=== PATIENT | female | born 1940 | race Caucasian/White ===

== ENCOUNTER 2017-01-19 10:14 | Outpatient (CLI) | payer MEDICARE, OTHER | END 2017-01-19 10:15 | disposition home or self-care (01) | LOC: LAB.N 10:14 | PROVIDERS: ATTEND Internal Medicine Hematology & Oncology | DX: C50.912 Malignant neoplasm of unspecified site of left female breast (principal); M81.0 Age-related osteoporosis without current pathological fracture | CPT/HCPCS: 36415; 86300 ==

== ENCOUNTER 2018-02-14 09:32 | Outpatient (CLI) | payer MEDICARE, OTHER | END 2018-02-14 09:33 | disposition home or self-care (01) | LOC: LAB 09:32 | PROVIDERS: ATTEND Internal Medicine Hematology & Oncology | DX: C50.912 Malignant neoplasm of unspecified site of left female breast (principal); Z08 Encounter for follow-up examination after completed treatment for malignant neoplasm | CPT/HCPCS: 36415; 82378; 86300 ==

== ENCOUNTER 2018-06-17 09:18 | Outpatient (CLI) | payer MEDICARE, OTHER ==
[2018-06-17 12:30] LABS: BASOPHILS % (AUTO) 0.5 %; EOSINOPHILS # (AUTO) 0.1 10^3/uL (0.0-0.7); EOSINOPHILS % (AUTO) 1.3 %; HGB - HEMOGLOBIN 12.2 g/dL (12.0-16.0); LYMPHOCYTES # (AUTO) 2.1 10^3/uL (1.5-3.5); LYMPHOCYTES % (AUTO) 42.1 %; MEAN CORPUSCULAR HEMOGLOBIN 33.4 pg (27.0-31.0); MEAN CORPUSCULAR HGB CONC 34.7 g/dL (32.0-36.0); MEAN CORPUSCULAR VOLUME 96.4 fL (81.0-99.0); MEAN PLATELET VOLUME 8.1 fL (7.9-10.8); MONOCYTES # (AUTO) 0.4 10^3/uL (0.0-1.0); MONOCYTES % (AUTO) 8.6 %; NEUTROPHILS # (AUTO) 2.3 10^3/uL (1.5-6.6); NEUTROPHILS % (AUTO) 47.5 %; PLT - PLATELET COUNT 237 10^3/uL (130-450); RED BLOOD COUNT 3.64 10^6/uL (4.20-5.40); RED CELL DISTRIBUTION WIDTH 13.4 % (12.0-15.0); WHITE BLOOD COUNT 4.9 x10^3/uL (4.8-10.8)
[2018-06-17 12:53] LABS: ALBUMIN 4.1 g/dL (3.2-5.5); ALBUMIN/GLOBULIN RATIO 1.4 (1.0-2.2); ALKALINE PHOSPHATASE 44 IU/L (42-121); ALT ALANINE AMINOTRANSFERASE 11 IU/L (10-60); AST ASPARTATE AMINOTRANSFERASE 20 IU/L (10-42); BILIRUBIN,TOTAL 0.9 mg/dL (0.2-1.0); BUN - BLOOD UREA NITROGEN 14 mg/dL (6-20); CALCIUM 9.4 mg/dL (8.5-10.3); CARBON DIOXIDE - CO2 29 mmol/L (21-32); CHLORIDE 102 mmol/L (101-111); CHOL/HDL RATIO 3.6 (<4.4); CHOLESTEROL 173 mg/dL; CREATININE 0.8 mg/dL (0.4-1.0); DIGOXIN 0.7 ng/mL; GFR - MDRD 69 (>89); GLUCOSE 89 mg/dL (70-100); HDL CHOLESTEROL 48 mg/dL; LDL CHOLESTEROL,CALCULATED 108 mg/dL; LDL/HDL RATIO 2.3 (<4.4); SODIUM 139 mmol/L (135-145); VLDL CHOLESTEROL 17 mg/dL
== END 2018-06-17 09:19 | disposition home or self-care (01) ==
LOC: LAB.N 09:18
PROVIDERS: ATTEND Internal Medicine
DX: I48.1 Persistent atrial fibrillation (principal); G47.30 Sleep apnea, unspecified; E78.00 Pure hypercholesterolemia, unspecified
CPT/HCPCS: 36415; 80053; 80061; 80162; 83721; 85025

== ENCOUNTER 2018-07-03 13:05 | Outpatient (CLI) | payer MEDICARE, OTHER | END 2018-07-03 13:06 | disposition home or self-care (01) | LOC: SC 13:05 | PROVIDERS: ATTEND Nurse Practitioner Family | DX: G47.33 Obstructive sleep apnea (adult) (pediatric) (principal) | CPT/HCPCS: 99214; G0463; 99212 ==

== ENCOUNTER 2021-06-14 13:08 | Emergency (ER) | payer MEDICARE, OTHER ==
[2021-06-14 13:18] VITALS: BP 105/69
--- NOTE | 2021-06-14 13:33 | ED Physician Documentation ---
PD HPI LOWER EXT INJURY - Stated complaint Stated Complaint: LEFT SIDE TOE INJURY - Chief complaint Chief Complaint: Ext Problem - History obtained from History obtained from: Patient - History of Present Illness PD HPI LOW EXT INJURY LOCATION: Left, Toe (4th) Type of injury: Blunt / blow (stubbed toe on furniture today.) Where injury occurred: Home Timing - onset: How many hours ago (1.5) Timing - duration: Hours (1.5) Timing - details: Abrupt onset Pain level max: 8 Pain level now: 5 Improved by: Rest Worsened by: Moving, Palpating Associated symptoms: Swelling. No: Weakness, Numbness, Tingling Recently seen: Not recently seen Review of Systems Constitutional: denies: Fever, Chills GI: denies: Vomiting, Diarrhea Skin: denies: Rash Musculoskeletal: denies: Neck pain, Back pain Neurologic: denies: Headache PD PAST MEDICAL HISTORY - Allergies Allergies/Adverse Reactions: Allergies Allergy/AdvReac Type Severity Reaction Status Date / Time No Known Drug Allergies Allergy Verified 06/14/21 13:18 PD ED PE NORMAL - Vitals Vital signs reviewed: Yes - General General: Alert and oriented X 3, No acute distress - Derm Derm: Warm and dry - Extremities Extremities: Other (Tender to palpation with mild swelling over left fourth toe. Neurovascular intact. No gross deformity.) - Neuro Neuro: Alert and oriented X 3 Results - Vitals Vitals: Vital Signs - 24 hr 06/14/21 13:12 Temperature 36.5 C Heart Rate 72 Respiratory 16 Rate Blood Pressure 105/69 O2 Saturation 97 Oxygen O2 Source Room air - Rads (name of study) Left toe x-ray Radiology: Final report received, EMP read contemporaneously, See rad report (Fracture of the proximal phalanx of the left fourth toe) PD MEDICAL DECISION MAKING - ED course Complexity details: reviewed results, re-evaluated patient, considered differential, d/w patient ED course: 81-year-old female with a left fourth toe fracture. Mayur tape applied. Placed in a postoperative shoe. Declines pain medication here or for home. Patient counseled regarding signs and symptoms for which I believe and urgent re- evaluation would be necessary. Patient with good understanding of and agreement to plan and is comfortable going home at this time This document was made in part using voice recognition software. While efforts are made to proofread this document, sound alike and grammatical errors may occur. Departure - Departure Disposition: 01 Home, Self Care Clinical Impression: Toe fracture, left Qualifiers: Encounter type: initial encounter Toe: unspecified toe Fracture type: closed Fracture alignment: nondisplaced Qualified Code(s): S92.912A - Unspecified fracture of left toe(s), initial encounter for closed fracture Condition: Good Instructions: ED Fx Toe Closed Follow-Up: Ramos Bello MD [Primary Care Provider] - Within 1 week Comments: Follow up with your doctor in 1 week for further care. Return if you worsen. You do have a fracture of your fourth toe. This will heal on it's own. Discharge Date/Time: 06/14/21 14:45
--- NOTE | 2021-06-14 13:56 | XRAY Report ---
PROCEDURE: Toe(s) LT INDICATIONS: 4th toe vs bedside table TECHNIQUE: 3 views of the fourth toe(s) acquired. COMPARISON: None. FINDINGS: BONES: Mildly displaced, oblique fracture of the fourth proximal phalanx which does not appear to ext end to the articular surface. The remaining visualized osseous structures are maintained. SOFT TISSUES: Edema about the fracture site. IMPRESSION: 1.Mildly displaced, oblique fracture of the fourth proximal phalanx. Reviewed by: Geoff Valdes MD on 06/14/2021 1:55 PM PDT Approved by: Geoff Valdes MD on 06/14/2021 1:55 PM PDT Station ID: [id number]
== END 2021-06-14 14:45 | disposition home or self-care (01) ==
LOC: ED 13:08
DX: S92.512A Displaced fracture of proximal phalanx of left lesser toe(s), initial encounter for closed fracture (principal); W22.8XXA Striking against or struck by other objects, initial encounter
CPT/HCPCS: 73660; 99283

== ENCOUNTER 2022-01-06 13:03 | Outpatient (CLI) | payer MEDICARE, OTHER | END 2022-01-06 13:04 | disposition critical access hospital (66) | LOC: EMS 13:03 | DX: R42 Dizziness and giddiness (principal); I95.9 Hypotension, unspecified | CPT/HCPCS: A0425; A0427 ==

== ENCOUNTER 2022-01-06 13:15 | Inpatient (IN) | payer MEDICARE, OTHER ==
[2022-01-06] MEDS ORDERED: SODIUM CHLORIDE 0.9% 1,000 ML IV STA ×2 (13:39→14:00)
[2022-01-06 13:49] LABS: BASOPHILS % (AUTO) 0.2 %; EOSINOPHILS % (AUTO) 0.5 %; HCT - HEMATOCRIT 35.7 % (37.0-47.0); HGB - HEMOGLOBIN 12.5 g/dL (12.0-16.0); LYMPHOCYTES # (AUTO) 2.6 10^3/uL (1.5-3.5); LYMPHOCYTES % (AUTO) 42.4 %; MEAN CORPUSCULAR HEMOGLOBIN 32.6 pg (27.0-31.0); MEAN PLATELET VOLUME 9.7 fL (7.9-10.8); MONOCYTES # (AUTO) 0.6 10^3/uL (0.0-1.0); MONOCYTES % (AUTO) 9.8 %; NEUTROPHILS # (AUTO) 2.9 10^3/uL (1.5-6.6); NEUTROPHILS % (AUTO) 47.1 %; PLT - PLATELET COUNT 224 10^3/uL (130-450); RED BLOOD COUNT 3.84 10^6/uL (4.20-5.40); WHITE BLOOD COUNT 6.2 x10^3/uL (4.8-10.8)
--- NOTE | 2022-01-06 13:56 | ED Physician Documentation ---
History of Present Illness - Stated complaint Stated Complaint: DIZZINESS - Chief complaint Chief Complaint: Neuro - History obtained from History obtained from: Patient, EMS - History of Present Illness Timing: Today Pain level max: 0 Pain level now: 0 - Additonal information Additional information: Patient is an 81-year-old female who is brought in to the emergency department for dizziness. She states that she stood up off the bed this morning and immediately felt lightheaded. Sat back down on the bed and symptoms resolved. She states that the dizziness only lasted for a few seconds. Her called 911. No chest pain. No shortness of breath. Better with sitting down, worse with standing.. Currently asymptomatic. EMS states that her blood pressure was low so they gave her IV fluids. No fevers. No chills. No abdominal pain. Review of Systems Ten Systems: 10 systems reviewed and negative Constitutional: denies: Fever, Chills Ears: denies: Ear pain Nose: denies: Rhinorrhea / runny nose, Congestion Throat: denies: Sore throat Cardiac: denies: Chest pain / pressure, Palpitations, Calf pain Respiratory: denies: Dyspnea, Cough, Wheezing GI: denies: Abdominal Pain, Nausea, Vomiting, Diarrhea Skin: denies: Rash Musculoskeletal: denies: Neck pain, Back pain Neurologic: reports: Generalized weakness. denies: Focal weakness, Numbness, Confused, Headache, Head injury, LOC PD PAST MEDICAL HISTORY - Past Medical History Past Medical History: Yes Cardiovascular: Murmur, Other Respiratory: None Neuro: None Endocrine/Autoimmune: None GI: None MANAGER POKER: None : None HEENT: Other Psych: None Musculoskeletal: None Derm: None - Past Surgical History Past Surgical History: Yes HEENT: Cataracts - Allergies Allergies/Adverse Reactions: Allergies Allergy/AdvReac Type Severity Reaction Status Date / Time No Known Drug Allergies Allergy Verified 06/14/21 13:18 - Social History Does the pt smoke?: No Smoking Status: Never smoker Does the pt drink ETOH?: Yes Does the pt have substance abuse?: No - Immunizations Immunizations are current?: Yes PD ED PE NORMAL - Vitals Vital signs reviewed: Yes - General General: Alert and oriented X 3, No acute distress - HEENT HEENT: PERRL, Moist mucous membranes - Neck Neck: Supple, no meningeal sign - Cardiac Cardiac: RRR, Strong equal pulses - Respiratory Respiratory: No respiratory distress, Clear bilaterally - Abdomen Abdomen: Soft, Non tender, Non distended - Derm Derm: Warm and dry - Extremities Extremities: No edema, No calf tenderness / cord - Neuro Neuro: Alert and oriented X 3, orthopedic shoe maker 2-12 intact, No motor deficit, No sensory deficit Eye Opening: Spontaneous Motor: Obeys Commands Verbal: Oriented GCS Score: 15 - Psych Psych: Normal mood, Normal affect Results - Vitals Vitals: Vital Signs - 24 hr 01/06/22 01/06/22 13:28 13:50 Temperature 35.9 C L Heart Rate 68 69 Respiratory 15 16 Rate Blood Pressure 92/56 L 97/67 O2 Saturation 97 Oxygen O2 Source Room air - EKG (time done) 1350 Rate: Rate (enter#) (69) Rhythm: Paced - Labs Labs: Laboratory Tests 01/06/22 01/06/22 01/06/22 13:45 13:45 13:45 WBC 6.2 RBC 3.84 L Hgb 12.5 Hct 35.7 L MCV 93.0 MCH 32.6 H MCHC 35.0 RDW 13.0 Plt Count 224 MPV 9.7 Neut # (Auto) 2.9 Lymph # (Auto) 2.6 [place] # (Auto) 0.6 Eos # (Auto) 0.0 Baso # (Auto) 0.0 Absolute Nucleated RBC 0.00 Nucleated RBC % 0.0 Sodium 123 L Potassium 3.0 L Chloride 84 L Carbon Dioxide 28 Anion Gap 11.0 BUN 24 H Creatinine 1.1 H Estimated GFR (MDRD) 47 L Glucose 129 H Calcium 9.3 Troponin I High Sens 10.5 B-Natriuretic Peptide Last Dose Date Last Dose Time Digoxin 01/06/22 01/06/22 13:45 13:45 WBC RBC Hgb Hct MCV MCH MCHC RDW Plt Count MPV Neut # (Auto) Lymph # (Auto) [place] # (Auto) Eos # (Auto) Baso # (Auto) Absolute Nucleated RBC Nucleated RBC % Sodium Potassium Chloride Carbon Dioxide Anion Gap BUN Creatinine Estimated GFR (MDRD) Glucose Calcium Troponin I High Sens B-Natriuretic Peptide 409 H Last Dose Date Not Reportable Last Dose Time Not Reportable Digoxin 0.4 PD MEDICAL DECISION MAKING - ED course Complexity details: reviewed old records, reviewed results, re-evaluated patient, considered differential, d/w patient, d/w home planning consultant salesperson ED course: Patient found to be hyponatremic, hypokalemic. Her last sodium level here was 139. She is not on any diuretics. Likely that this is related to her dehydration. We will place her on IV fluids and placed in observation for further care. Discussed the case with Dr. Pruitt, hospitalist who accepts This document was made in part using voice recognition software. While efforts are made to proofread this document, sound alike and grammatical errors may occur. Departure - Departure Disposition: ED Place in Observation Clinical Impression: Hyponatremia, Dehydration, Hypokalemia Condition: Stable Discharge Date/Time: 01/06/22 16:49
[2022-01-06 13:58] LABS: CALCIUM 9.3 mg/dL (8.5-10.3); CREATININE 1.1 mg/dL (0.4-1.0)
[2022-01-06 14:40] LABS: DIGOXIN 0.4 ng/mL
[2022-01-06] MEDS ORDERED: ACETAMINOPHEN 325 MG TABLET PO PRN (14:51)
[2022-01-06] MEDS ORDERED: SODIUM CHLORIDE FLUSH 0.9% 10 ML SYRINGE IVP PRN (14:51)
[2022-01-06] MEDS ORDERED: ONDANSETRON 4 MG/2 ML VIAL IVP PRN (14:51)
[2022-01-06] MEDS ORDERED: POTASSIUM CHLORIDE 20 MEQ TABLET PO STA (14:57)
--- NOTE | 2022-01-06 15:02 | HISTORY & PHYSICAL EXAMINATION ---
Chief Complaint - Chief Complaint Chief Complaint: dizziness History of Present Illness - Admitted From Admitted From:: medical floor - History Obtained From Records Reviewed: [facility], ER notes History obtained from: pt Exam Limitations: pt's hx of dementia - History of Present Illness HPI Comment/Other: This is a 81-yrs old female with a significant medical history of dementia and CVA with wheelchair bound, a fib who present ER complain of Dizziness. pt report when she stood up in this morning, she immediately felt lightheaded. she has to sit back down on the bed, then her symptoms was resolved. she denies fall or i njury or loss of consciousness. her dizziness has only lasted for a few seconds. She denies chest pain, fever, chill. She report this dizziness thing happened before and state " it is my problem I did not drink enough." Routine laboratory test show sodium 123, potassium 3, BUN 24, creatinine 1.1, troponin 10.5, BNP 409. In the ER, patient is afebrile, her blood pressure was 92/56. Given patient's above medical conditions, medical team was consulted for admission. Discussed the care goal with patient, patient state she hope to be DNR "let it happen as natural way." History - Past Medical History Cardiovascular: reports: Murmur, Other Respiratory: reports: None Neuro: reports: None Endocrine/Autoimmune: reports: None GI: reports: None FINANCIAL SALES ADVISOR: reports: None : reports: None HEENT: reports: Other Psych: reports: None Musculoskeletal: reports: None Derm: reports: None - Past Surgical History HEENT: reports: Cataracts - Family & Social History Family History Comment/Other: pt report her father from Dementia, unknow his age. Her mother at age 93. Social History Notes: pt report she had cigarret smoking when she was ago 13 then she quit. she did not drink alcohol or have no drug issue. Meds/Allgy - Allergies Allergies/Adverse Reactions: Allergies Allergy/AdvReac Type Severity Reaction Status Date / Time No Known Drug Allergies Allergy Verified 06/14/21 13:18 Review of Systems - Constitutional Constitutional: denies: Fever, Chills - Cardiovascular Cariovascular: reports: Lightheadedness. denies: Chest pain, Syncope - Respiratory Respiratory: denies: Cough, SOB at rest - Gastrointestinal Gastrointestinal: denies: Abdominal pain, Nausea, Vomiting - Neurological Neurological: denies: Numbness, Seizures, Incoordination, Slurred speech Exam - Vital Signs Vital Signs: Vital Signs x48h Temp Pulse Resp BP Pulse Ox 01/06/22 13:50 69 16 97/67 01/06/22 13:28 35.9 C L 68 15 92/56 L 97 - Physical Exam General Appearance: positive: No acute distress, Alert. negative: Lethargic Eyes Bilateral: positive: Normal inspection, No lid inflammation ENT: positive: ENT inspection nml. negative: Purulent nasal drainage Neck: positive: Nml inspection, Trachea midline. negative: Tracheal deviation Respiratory: positive: Chest non-tender, No respiratory distress. negative: Wheezes Cardiovascular: positive: Regular rate & rhythm, No murmur. negative: Tachycardia, Bradycardia, Systolic murmur, Diastolic murmur Peripheral Pulses: positive: 2+ Abdomen: positive: Non-tender, Nml bowel sounds, No distention. negative: Tenderness Back: positive: Nml inspection Skin: positive: Color nml, Warm, Dry Extremities: positive: Non-tender, Nml appearance Neurologic/Psychiatric: negative: Weakness, Sensory loss, Facial droop, Slurred/abnml speech Conclusion/Plan - Problem List (1) Dizziness Conclusion/Plan: Patient report she immediately felt dizziness and lightheaded when she stands up. after she was given IVF by EMS, her BP was still at 92/56 at ER. Lab test show dehydration with slightly increase creatinine to 1.1. Hyponatremia, hypokalemia. Troponin was 10.5, negative for acute TN. pt's home medication list is pending. we do not have ECHO study service now. one of different diagnosis include dehydration, orthostatic hypotension, or overdose of home BP medications. plan: IVF for dehydration. pt was already given 1 liter of IVF, we will continue IV of NS, orthostatic vital sign monitor, fall precaution for pt. Tele and vital monitor pt. (2) Dehydration Conclusion/Plan: Patient had elevated BUN and creatinine, Low blood pressure. Patient already had 1 L of normal saline in the ER, we will continue intravenous IV fluids, continue geophysical laboratory director (3) Hyponatremia Conclusion/Plan: Patient's sodium of 123, is likely hypovolemia and hyponatremia. we will have IV of NS for pt, continue lab monitor for pt (4) Hypokalemia Conclusion/Plan: pt's potassium is 3. we will replacement with potassium, continue geophysical laboratory director - Lab Results Fish Bones: 01/06/22 13:45 01/06/22 13:45 Core Measures - Anticipated LOS I expect patient to be DC'd or transferred within 96 hours.: Yes - DVT/VTE - Prophylaxis VTE/DVT Device ordered at admit?: Yes VTE/DVT Prophylaxis med ordered at admit?: Yes
[2022-01-06] MEDS: SODIUM CHLORIDE 0.9% 1,000 ML IV SCH (16:00)
[2022-01-06 16:24] LABS: B. PARAPERTUSSIS- RESP PCR PAN NOT DETECTED; B. PERTUSSIS- RESP PCR PANEL NOT DETECTED; C. PNEUMONIAE- RESP PCR PANEL NOT DETECTED; CORONAVIRUS 229E-RESP PCR NOT DETECTED; CORONAVIRUS HKU1-RESP PCR NOT DETECTED; CORONAVIRUS NL63-RESP PCR NOT DETECTED; CORONAVIRUS OC43-RESP PCR NOT DETECTED; HUMAN METAPNEUMOVIRUS NOT DETECTED; INFLUENZA A- RESP PCR PANEL NOT DETECTED; INFLUENZA B - RESP PCR PANEL NOT DETECTED; M. PNEUMONIAE- RESP PCR PANEL NOT DETECTED; PARAINFLUENZA VIRUS 1 NOT DETECTED; PARAINFLUENZA VIRUS 2 NOT DETECTED; PARAINFLUENZA VIRUS 3 NOT DETECTED; PARAINFLUENZA VIRUS 4 NOT DETECTED; RHINOVIRUS/ENTEROVIRUS NOT DETECTED; RSV- RESP PCR PANEL NOT DETECTED; SARS-CoV-2 -RESP PCR PANEL NOT DETECTED
[2022-01-06 16:35] LABS: BILIRUBIN,URINE NEGATIVE (NEGATIVE); GLUCOSE, URINE (UA) NEGATIVE (NEGATIVE); KETONES,URINE (UA) NEGATIVE (NEGATIVE); LEUKOCYTE ESTERASE, URINE TRACE (NEGATIVE); NITRITE,URINE NEGATIVE (NEGATIVE); OCCULT BLOOD,URINE NEGATIVE (NEGATIVE); PROTEIN,URINE NEGATIVE (NEGATIVE); UROBILINOGEN,URINE 0.2 (NORMAL) E.U./dL (NORMAL)
[2022-01-06 16:41] LABS: CLARITY,URINE CLEAR (CLEAR)
[2022-01-06 16:46] LABS: BACTERIA,URINE Rare /HPF (None Seen); RBC,URINE 0-5 /HPF (0-5); SQUAMOUS EPITHELIAL CELL,UR FEW Squamous (<= Few); WBC,URINE 0-3 /HPF (0-5)
[2022-01-06] MEDS: POTASSIUM CHLOR 10 MEQ/100 ML 10 MEQ/100 ML BAG IV SCH ×2 (17:38→18:52)
[2022-01-06] MEDS: SODIUM CHLORIDE FLUSH 0.9% 10 ML SYRINGE IVP SCH (17:39)
[2022-01-07] MEDS: SODIUM CHLORIDE FLUSH 0.9% 10 ML SYRINGE IVP SCH ×3 (00:07→16:26)
[2022-01-07] MEDS: SODIUM CHLORIDE 0.9% 1,000 ML IV SCH (00:09)
[2022-01-07 06:33] LABS: BASOPHILS % (AUTO) 0.3 %; EOSINOPHILS # (AUTO) 0.1 10^3/uL (0.0-0.7); EOSINOPHILS % (AUTO) 1.4 %; HCT - HEMATOCRIT 34.7 % (37.0-47.0); HGB - HEMOGLOBIN 12.1 g/dL (12.0-16.0); LYMPHOCYTES # (AUTO) 2.3 10^3/uL (1.5-3.5); LYMPHOCYTES % (AUTO) 36.2 %; MEAN CORPUSCULAR HEMOGLOBIN 31.9 pg (27.0-31.0); MEAN CORPUSCULAR HGB CONC 34.9 g/dL (32.0-36.0); MEAN CORPUSCULAR VOLUME 91.6 fL (81.0-99.0); MEAN PLATELET VOLUME 9.9 fL (7.9-10.8); MONOCYTES # (AUTO) 0.7 10^3/uL (0.0-1.0); MONOCYTES % (AUTO) 10.6 %; NEUTROPHILS # (AUTO) 3.2 10^3/uL (1.5-6.6); NEUTROPHILS % (AUTO) 51.3 %; PLT - PLATELET COUNT 220 10^3/uL (130-450); RED BLOOD COUNT 3.79 10^6/uL (4.20-5.40); RED CELL DISTRIBUTION WIDTH 12.9 % (12.0-15.0); WHITE BLOOD COUNT 6.2 x10^3/uL (4.8-10.8)
[2022-01-07 06:37] LABS: CALCIUM 8.6 mg/dL (8.5-10.3); CREATININE 0.8 mg/dL (0.4-1.0); POTASSIUM 3.3 mmol/L (3.5-5.0)
[2022-01-07] MEDS: ENOXAPARIN 40 MG/0.4 ML SYRINGE SUBQ SCH (08:09)
[2022-01-07] MEDS: POTASSIUM CHLOR 10 MEQ/100 ML 10 MEQ/100 ML BAG IV SCH ×4 (09:35→12:45)
[2022-01-07 09:37] LABS: ALBUMIN 3.7 g/dL (3.2-5.5); ALKALINE PHOSPHATASE 40 IU/L (42-121); ALT ALANINE AMINOTRANSFERASE < 10 IU/L (10-60); AST ASPARTATE AMINOTRANSFERASE 16 IU/L (10-42); BILIRUBIN,DIRECT 0.2 mg/dL (0.1-0.5); MAGNESIUM 1.9 mg/dL (1.7-2.8); TOTAL PROTEIN 6.4 g/dL (6.7-8.2)
--- NOTE | 2022-01-07 11:29 | PROVIDER PROGRESS NOTE ---
Assessment/Plan - Problem List (1) Orthostatic hypotension Assessment/Plan: Patient reported she felt dizziness and lightheaded when she stood up at home and her called EMS for this. IV fluids were given by EMS and in the ER and she still had low BP, and her blood tests show dehydration, hyponatremia, and hypokalemia. Her home meds should not be making her have low BP (she was on Dig, Eliquis, Pravastatin and Propafenone). She was brought in for Observation status and has received iv saline since admission, but she is still orthostatic and possibly symptomatic with this today Will admit her to Inpatient status. Will continue IV fluids Monitor orthostatic vital sign Follow BMP daily Continue telemetry We have no Echo service whatsoever here currently. As a Board-Certified [place] rdiologist, credentialed to do and interpret Echos, I performed a limited bedside Echo with Doppler today. The Echo showed: Normal LA and RA sizes Normal aortic root diameter with mural atherosclerosis Normal LV size and wall thickness, normal LV contractility except apical motion abnormal, consistent with a paced rhythm. LVEF 55%. RV size upper limits of normal and a pacamaker is seen in RV. Normal RV function. Valves appear structurally normal, only trace mitral regurg seen by Doppler exam of valves. A smal, loculated apical pericardial effusion is seen, not hemodynamically significant. (2) Dementia She claims that she has had a prior [place] and a prior stroke. She does not remember an ambulance being called to her house yesterday or that she was dizzy. She thinks she is in a "healthcare facility" and thinks she has been here for a long time. She was oriented to self and place, not to time and has very poor short-term and long-term memory, by my bedside evaluation. She claims she still drives. Because only poor po intake was found as a cause of the current volume depletion, there is concern that she may have Failure To Thrive. She describes that there is a caregiver name Ayesha who comes in and prepares 3 meals, does some housecleaning but does not assist with the patient's toileting or bathing or dressing. Given her diagnosis of dementia, I checked for prior head imaging and there was none at this facility and none was done at admission in the ED yesterday. We will obtain a head CT. PT evaluation was ordered. Per her RN, she is very impulsive, tries to stand up on her own and walk in the room despite her being connected to telemetry and IV tubing. She has been reminded several times to call her nurse before getting out of bed on her own We will determine what her usual oral intake is, by reaching out to the . Social work consult also ordered for this. If she has FTT, with poor oral intake, we will stop the use of her statin medic ation. Will submit a DMV form [prohibiting driving a vehicle any longer. (3) Dehydration She presented with pre-renal azotemia with BUN/creat 24/1.1, which has corrected to 17/0.8 this morning. Only poor po intake was found as a cause of the current volume depletion. There has been no fever, no diarrhea, no medications that would make her dehydrated were being used. Because of her dementia, will determine what her usual oral intake is by reaching out to the . Social work consult also ordered for this. Continue iv hydration and plan as in #1 (4) Hyponatremia Patient's sodium was 123, with hypovolemic hyponatremia. Her Na has improved to 125 then 127 this a.m. We will continue IV NS, and continue lab monitoring, to prevent too rapid of a correction (5) Hypokalemia Her Potassium was 3 and replacement was ordered. Despite this, her a.m. labs show persistent Hypokalemia. There were no diuretics on her home med list to explain this and there has been no fever, no diarrhea, to explain the low sodium and volume depletion as well. Only poor po intake was found as a cause of the current volume depletion. We will replacement with potassium Follow BMP (6) Atrial flutter From her medication list showing Digoxin, Eliquis and propafenone use, it appears she has chronic atrial fib-flutter. Her rate is controlled. We are still awaiting the med list to be reconciled to restart her meds. There was concern that she is on Eliquis, given her dementia and dizziness and therefore falls risk. This will be discussed with the family/. PT consult has also been ordered to assess her, because of fall risk. Continue with telemetry (7) Pacemaker Her telemetry shows that she has appropriate ventricular demand pacing. (8) Hx of CVA As per records and she voiced this. Will obtain a head CT today. - Current Meds Current Meds: Current Medications Generic Name Dose Route Start Last Admin Trade Name Frelakesha PRN Reason Stop Dose Admin Enoxaparin Sodium 40 mg 01/07/22 09:00 01/07/22 08:09 Enoxaparin 40 Mg/0.4 Ml Syringe SUBQ 40 mg DAILY AYANA Administration Potassium Chloride 10 meq in 100 mls @ 100 mls/hr 01/07/22 10:00 01/07/22 10:41 Potassium Chloride IV 01/07/22 13:59 100 mls/hr Q1H AYANA Administration Sodium Chloride 10 ml 01/06/22 17:00 01/07/22 08:09 Sodium Chloride Flush 0.9% 10 Ml Syringe IVP Not Given 0100,0900,1700 AYANA - Lab Result Fish Bone Diagrams: 01/07/22 06:10 01/07/22 06:10 - Additional Planning My Orders: My Active Orders 01/07/22 10:00 Potassium Chlor 10 Meq/100 ml [Potassium Chloride] 10 meq in 100 ml IV Q1H Subjective - Subjective Patient Reports: No Complaints Nursing Reports: Other (Wants to go home, thinks she has been here for "a long time".) Objective Vital Signs: Vital Signs - 24 hr 01/06/22 01/06/22 01/06/22 13:28 13:50 16:44 Temperature 35.9 C L 36.4 C L Heart Rate 68 69 Heart Rate [ 68 Apical] Heart Rate [ Brachial] Respiratory 15 16 20 Rate Blood Pressure 92/56 L 97/67 Blood Pressure 110/66 [Right Brachial artery] O2 Saturation 97 100 01/06/22 01/06/22 01/07/22 21:00 23:33 04:35 Temperature 36.3 C L 36.4 C L 36.2 C L Heart Rate Heart Rate [ Apical] Heart Rate [ 69 69 75 Brachial] Respiratory 16 18 14 Rate Blood Pressure Blood Pressure 114/57 L 112/62 126/74 [Right Brachial artery] O2 Saturation 98 99 100 01/07/22 07:50 Temperature 36.2 C L Heart Rate Heart Rate [ Apical] Heart Rate [ 69 Brachial] Respiratory 16 Rate Blood Pressure Blood Pressure 111/65 [Right Brachial artery] O2 Saturation 97 Oxygen O2 Source Room air I&O (Last 24 Hrs): Intake and Output Totals x24h 01/05/22 01/06/22 01/07/22 23:59 23:59 23:59 Intake Total 2240 2340 Balance 2240 2340 General: Alert, No acute distress, Other (Is disheveled, wearing her glasses sideways on her nose.) HEENT: Atraumatic, Mucous membr. moist/pink Neck: Supple, No JVD Neuro: Alert, Non Focal, Other (Poor short-term and long-term memory. Normal but slow speech, not garbled.) Cardiovascular: Regular rate, No murmurs Respiratory: No respiratory distress, Breath sounds nml Abdomen: Normal bowel sounds, Soft, No tenderness Extremities: No clubbing, No edema, No tenderness/swelling Skin: No rashes - Results Results: Laboratory Results WBC 6.2 x10^3/uL (4.8-10.8) 01/07/22 06:10 RBC 3.79 10^6/uL (4.20-5.40) L 01/07/22 06:10 Hgb 12.1 g/dL (12.0-16.0) 01/07/22 06:10 Hct 34.7 % (37.0-47.0) L 01/07/22 06:10 MCV 91.6 fL (81.0-99.0) 01/07/22 06:10 MCH 31.9 pg (27.0-31.0) H 01/07/22 06:10 MCHC 34.9 g/dL (32.0-36.0) 01/07/22 06:10 RDW 12.9 % (12.0-15.0) 01/07/22 06:10 Plt Count 220 10^3/uL (130-450) 01/07/22 06:10 MPV 9.9 fL (7.9-10.8) 01/07/22 06:10 Neut # (Auto) 3.2 10^3/uL (1.5-6.6) 01/07/22 06:10 Lymph # (Auto) 2.3 10^3/uL (1.5-3.5) 01/07/22 06:10 [place] # (Auto) 0.7 10^3/uL (0.0-1.0) 01/07/22 06:10 Eos # (Auto) 0.1 10^3/uL (0.0-0.7) 01/07/22 06:10 Baso # (Auto) 0.0 10^3/uL (0.0-0.1) 01/07/22 06:10 Absolute Nucleated RBC 0.00 x10^3/uL 01/07/22 06:10 Nucleated RBC % 0.0 /100WBC 01/07/22 06:10 Sodium 127 mmol/L (135-145) L 01/07/22 06:10 Potassium 3.3 mmol/L (3.5-5.0) L 01/07/22 06:10 Chloride 93 mmol/L (101-111) L 01/07/22 06:10 Carbon Dioxide 26 mmol/L (21-32) 01/07/22 06:10 Anion Gap 8.0 (6-13) 01/07/22 06:10 BUN 17 mg/dL (6-20) 01/07/22 06:10 Creatinine 0.8 mg/dL (0.4-1.0) 01/07/22 06:10 Estimated GFR (MDRD) 69 (>89) L 01/07/22 06:10 Glucose 108 mg/dL (70-100) H 01/07/22 06:10 Calcium 8.6 mg/dL (8.5-10.3) 01/07/22 06:10 Magnesium 1.9 mg/dL (1.7-2.8) 01/07/22 06:15 Total Bilirubin 1.0 mg/dL (0.2-1.0) 01/07/22 06:15 Direct Bilirubin 0.2 mg/dL (0.1-0.5) 01/07/22 06:15 AST 16 IU/L (10-42) 01/07/22 06:15 ALT < 10 IU/L (10-60) L 01/07/22 06:15 Alkaline Phosphatase 40 IU/L (42-121) L 01/07/22 06:15 Troponin I High Sens 10.5 ng/L (2.3-14.8) 01/06/22 13:45 B-Natriuretic Peptide 409 pg/mL (5-100) H 01/06/22 13:45 Total Protein 6.4 g/dL (6.7-8.2) L 01/07/22 06:15 Albumin 3.7 g/dL (3.2-5.5) 01/07/22 06:15 Globulin 2.7 g/dL (2.1-4.2) 01/07/22 06:15 Urine Color YELLOW 01/06/22 16:28 Urine Clarity CLEAR (CLEAR) 01/06/22 16:28 Urine pH 7.0 PH (5.0-7.5) 01/06/22 16:28 Ur Specific [place] 1.015 (1.002-1.030) 01/06/22 16:28 Urine Protein NEGATIVE mg/dL (NEGATIVE) 01/06/22 16:28 Urine Glucose (UA) NEGATIVE mg/dL (NEGATIVE) 01/06/22 16:28 Urine Ketones NEGATIVE mg/dL (NEGATIVE) 01/06/22 16:28 Urine Occult Blood NEGATIVE (NEGATIVE) 01/06/22 16:28 Urine Nitrite NEGATIVE (NEGATIVE) 01/06/22 16:28 Urine Bilirubin NEGATIVE (NEGATIVE) 01/06/22 16:28 Urine Urobilinogen 0.2 (NORMAL) E.U./dL (NORMAL) 01/06/22 16:28 Ur Leukocyte Esterase TRACE (NEGATIVE) H 01/06/22 16:28 Urine RBC 0-5 /HPF (0-5) 01/06/22 16:28 Urine WBC 0-3 /HPF (0-5) 01/06/22 16:28 Ur Squamous Epith Cells FEW Squamous (<= Few) 01/06/22 16:28 Urine Bacteria Rare /HPF (None Seen) 01/06/22 16:28 Ur Microscopic Review INDICATED 01/06/22 16:28 Urine Culture Comments INDICATED 01/06/22 16:28 Nasal Adenovirus (PCR) NOT DETECTED 01/06/22 15:10 Nasal B. parapertussis DNA (PCR) NOT DETECTED 01/06/22 15:10 Nasal Coronavir 229E PCR NOT DETECTED 01/06/22 15:10 Nasal Coronavir HKU1 PCR NOT DETECTED 01/06/22 15:10 Nasal Coronavir NL63 PCR NOT DETECTED 01/06/22 15:10 Nasal Coronavir OC43 PCR NOT DETECTED 01/06/22 15:10 Nasal Enterovir/Rhinovir PCR NOT DETECTED 01/06/22 15:10 Nasal Influenza B PCR NOT DETECTED 01/06/22 15:10 Nasal Influenza A PCR NOT DETECTED 01/06/22 15:10 Nasal Parainfluen 1 PCR NOT DETECTED 01/06/22 15:10 Nasal Parainfluen 2 PCR NOT DETECTED 01/06/22 15:10 Nasal Parainfluen 3 PCR NOT DETECTED 01/06/22 15:10 Nasal Parainfluen 4 PCR NOT DETECTED 01/06/22 15:10 Nasal RSV (PCR) NOT DETECTED 01/06/22 15:10 Nasal B.pertussis DNA PCR NOT DETECTED 01/06/22 15:10 Nasal C.pneumoniae (PCR) NOT DETECTED 01/06/22 15:10 [place] Human Metapneumo PCR NOT DETECTED 01/06/22 15:10 Nasal M.pneumoniae (PCR) NOT DETECTED 01/06/22 15:10 Nasal SARS-CoV-2 (PCR) NOT DETECTED 01/06/22 15:10 Last Dose Date Not Reportable 01/06/22 13:45 Last Dose Time Not Reportable 01/06/22 13:45 Digoxin 0.4 ng/mL 01/06/22 13:45
--- NOTE | 2022-01-07 14:22 | CT Report ---
PROCEDURE: CT brain without contrast INDICATIONS: Poor memory, old CVA TECHNIQUE: Noncontrast 4.5 mm thick angled axial sections acquired from the foramen magnum to the vertex. For r adiation dose reduction, the following was used: automated exposure control, adjustment of mA and/or kV according to patient size. COMPARISON: None. FINDINGS: Image quality: Excellent. CSF spaces: Basal cisterns are patent. No extra-axial fluid collections. Ventricles are normal in size and shape. Brain: No midline shift. No intracranial masses or hemorrhage. Lopez-white matter interface is norm al. Encephalomalacia and gliosis noted in the right MCA territory noted with volume loss. Skull and face: Calvarium and visualized facial bones are intact, without suspicious lesions. Bilat eral intraocular lens replacements noted. Sinuses: Visualized sinuses and mastoids are clear. IMPRESSION: 1. 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 2. No acute hemorrhage or mass effect Reviewed by: Jermain Mckay MD on 01/07/2022 1:21 PM AKDT Approved by: Jermain Mckay MD on 01/07/2022 1:21 PM AKDT Station ID: [id number]
[2022-01-07] MEDS ORDERED: LORazepam 2 MG/ML VIAL IVP PRN (16:57)
[2022-01-07] MEDS: NS W/20 MEQ KCL 1,000 ML IV SCH (19:11)
[2022-01-07] MEDS: THIAMINE INJ 500 MG in SODIUM CHLORIDE 0.9% 50 ML IV SCH (21:31)
[2022-01-08] MEDS: SODIUM CHLORIDE FLUSH 0.9% 10 ML SYRINGE IVP SCH ×3 (00:08→16:10)
[2022-01-08] MEDS: THIAMINE INJ 500 MG in SODIUM CHLORIDE 0.9% 50 ML IV SCH ×3 (06:25→21:13)
[2022-01-08] MEDS ORDERED: SODIUM CHLORIDE 0.9% 50 ML IV ONE (06:25)
[2022-01-08] MEDS ORDERED: THIAMINE 100 MG/1 ML 2 ML MDV ONE (06:25)
[2022-01-08] MEDS: NS W/20 MEQ KCL 1,000 ML IV SCH ×2 (07:21→19:14)
[2022-01-08 07:40] LABS: BASOPHILS % (AUTO) 0.6 %; EOSINOPHILS # (AUTO) 0.2 10^3/uL (0.0-0.7); EOSINOPHILS % (AUTO) 2.8 %; HCT - HEMATOCRIT 35.3 % (37.0-47.0); HGB - HEMOGLOBIN 11.9 g/dL (12.0-16.0); LYMPHOCYTES # (AUTO) 2.7 10^3/uL (1.5-3.5); LYMPHOCYTES % (AUTO) 50.2 %; MEAN CORPUSCULAR HEMOGLOBIN 32.9 pg (27.0-31.0); MEAN CORPUSCULAR HGB CONC 33.7 g/dL (32.0-36.0); MEAN CORPUSCULAR VOLUME 97.5 fL (81.0-99.0); MEAN PLATELET VOLUME 9.9 fL (7.9-10.8); MONOCYTES # (AUTO) 0.5 10^3/uL (0.0-1.0); NEUTROPHILS # (AUTO) 1.9 10^3/uL (1.5-6.6); PLT - PLATELET COUNT 219 10^3/uL (130-450); RED BLOOD COUNT 3.62 10^6/uL (4.20-5.40); RED CELL DISTRIBUTION WIDTH 13.2 % (12.0-15.0); WHITE BLOOD COUNT 5.4 x10^3/uL (4.8-10.8)
[2022-01-08 07:54] LABS: CALCIUM 8.5 mg/dL (8.5-10.3); CREATININE 0.8 mg/dL (0.4-1.0); POTASSIUM 3.7 mmol/L (3.5-5.0)
[2022-01-08] MEDS: ENOXAPARIN 40 MG/0.4 ML SYRINGE SUBQ SCH (08:36)
[2022-01-08] MEDS: ASPIRIN EC 81 MG TABLET PO SCH (08:36)
[2022-01-08] MEDS ORDERED: MULTIVITAMIN 10 ML, THIAMINE INJ 100 MG, FOLIC ACID INJ 1 MG in SODIUM CHLORIDE 0.9% 1,... IV SCH (09:00)
--- NOTE | 2022-01-08 09:01 | PHARMACY PROGRESS NOTE ---
- Best Possible Medication History Admit Date and Time: 01/07/22 1031 Processed by: Pharmacy (and nursing) Medication History completed: Yes Patient Interview: Pt unable to participate Secondary Source(s): Written medication list, Spouse/Significant other, Insurance records As the person ultimately responsible for medication therapy, providers are able to order a medication from an existing home medication list in [facility] via the "Reconcile Routine" prior to Confirmation of that medication by medical support specialist. Such practice is discouraged except when the physician, in their clinical judgment, deems that a medical need exists for a medication without regard to previous use.
--- NOTE | 2022-01-08 17:02 | PROVIDER PROGRESS NOTE ---
Assessment/Plan - Problem List (1) Orthostatic hypotension Assessment/Plan: Patient reported she felt dizziness and lightheaded when she stood up at home and her called EMS for this. IV fluids were given by EMS and in the ER and she still had low BP, and her blood tests show dehydration, hyponatremia, and hypokalemia. Her home meds should not be making her have low BP (she was on Dig, Eliquis, Pravastatin and Propafenone). She was admitted from Observation status yesterday, since she is still orthostatic. An Echo was done yesterday that showed normal chamber sizes and normal LVEF. Will continue IV fluids Monitor orthostatic vital sign Follow BMP daily Continue telemetry (2) Alcohol abuse I talked to the yesterday. Later in the day the caregiver Ayesha came in and and I asked Ayesha about the patient's alcohol intake. The says she drinks 1 glass of wine before dinner. The caregiver says she drinks up to 3 glasses of wine every night. We have started high-dose IV thiamine which may improve her poor memory. She is getting Thiamine 500 mg IV t.i.d. for 3 days then will start 100 mg po daily. She has been started on a CIWA protocol and has scored high, has needed Ativan several times. With Ativan she is less impulsive and less agitated. At yesterday's phone call with the , it was advised she not be taking in alcohol. The patient's said that she can occasionally "get goofy" and he agreed that she should not be drinking alcohol. (3) Dementia She claimed that she has had a prior [place] and a prior stroke. The told me there was a stroke when they lived in [place]. She has never had an SD. She does not remember an ambulance being called to her house or that she was dizzy at home. She could tell me yesterday she is in a "healthcare facility" then thought she was at [facility] in [place], [place]. She was oriented to self, not to time or place and has very poor short-term and long-term memory, by my bedside evaluation yesterday. She said she still drives and "tells her where to turn". At the phone call with the , he confirmed this. Given her diagnosis of dementia,and no prior head imaging done here,we obtained a head CT yesterday. It showed an old stroke and atrophy. PT evaluation was ordered and done yesterday. She was found to be very impulsive, tried to stand up on her own and walk in the room despite her being connected to telemetry and IV tubing. She was reminded several times to call her nurse before getting out of bed on her own. This improved after getting Ativan for agitation from presumed alcohol withdrawal. I submitted a DMV form prohibit ing driving a vehicle any longer, and told the this yesterday. Correcting her hyponatremia and treating her with high-dose thiamine may help her dementia somewhat (4) Dehydration She presented with pre-renal azotemia with BUN/creat 24/1.1, which has corrected to 17/0.8. Only poor po intake was found as a cause of the current volume depletion. There has been no fever, no diarrhea, no medications that would make her dehydrated were being used. Because of her dementia, I spoke to the by phone yesterday and the caregiver who visited her yesterday afternoon. The and the caregiver confirmed that the patient drinks nothing all day except for morning coffee and wine at night Continue iv hydration and plan as in #1 (5) Hyponatremia Patient's sodium was 123, with hypovolemic hyponatremia. Her Na is improving with iv fluids We will continue IV NS, and continue lab monitoring, to prevent too rapid of a correction (6) Hypokalemia Her Potassium was 3 and replacement was ordered for 2 days now. There was no N/V/D and no diuretics on her home med list to explain this low K and there has been no fever, to explain the low sodium and volume depletion as well. Only poor po intake was found as a cause of the current volume depletion. We will order replacement with potassium Follow BMP (7) Atrial flutter From her medication list showing Digoxin, Eliquis and Propafenone use, it appears she has chronic atrial fib-flutter. Her rate is controlled. We are holding the Propafenone as it is not maintaining sinus rhythm. There was concern that she is on Eliquis, given her dementia and dizziness and therefore falls risk. This will be discussed with the family/. PT consult has also been ordered to assess her fall risk. Continue with telemetry (8) Pacemaker Her telemetry shows that she has appropriate ventricular demand pacing. (9) Hx of CVA As per records and she voiced this. Will obtain a head CT today. - Current Meds Current Meds: Current Medications Generic Name Dose Route Start Last Admin Trade Name Anjel PRN Reason Stop Dose Admin Aspirin 81 mg 01/08/22 09:00 01/08/22 08:36 Aspirin Ec 81 Mg Tablet PO 81 mg DAILY AYANA Administration Enoxaparin Sodium 40 mg 01/07/22 09:00 01/08/22 08:36 Enoxaparin 40 Mg/0.4 Ml Syringe SUBQ 40 mg DAILY AYANA Administration Potassium Chloride/Sodium Chloride 1,000 mls @ 83.333 mls/hr 01/07/22 17:00 01/08/22 14:22 Normal Saline 0.9% W/20 Meq Kcl IV 83.3 mls/hr .Q12H AYANA Infusion Thiamine HCl 500 mg/ Sodium 55 mls @ 100 mls/hr 01/07/22 22:00 01/08/22 14:22 Chloride IV 01/10/22 15:00 Infused TID AYANA Infusion Lorazepam 1 mg 01/07/22 16:57 01/07/22 19:27 Lorazepam 2 Mg/Ml Vial IVP 1 mg Q30M PRN Administration CIWA >8 Protocol Sodium Chloride 10 ml 01/06/22 17:00 01/08/22 16:10 Sodium Chloride Flush 0.9% 10 Ml Syringe IVP Not Given 0100,0900,1700 AYANA - Lab Result Fish Bone Diagrams: 01/08/22 07:05 01/08/22 07:05 - Additional Planning My Orders: My Active Orders 01/07/22 16:57 CIWA - AR Score Card [RC] Q4HR LORazepam INJ [Ativan Inj (Vial)] 1 mg IVP Q30M PRN 01/07/22 17:00 Ns W/20 Meq KCl [Normal Saline 0.9% W/20 Meq KCl] 1,000 ml IV 83.333 mls/hr 01/07/22 22:00 Thiamine Inj [Vitamin B-1 Inj] 500 mg Sodium Chloride 0.9% [Normal Saline 0.9%] 50 ml IV TID 01/08/22 09:00 Aspirin EC [Ecotrin] 81 mg PO DAILY Subjective - Subjective Patient Reports: Feeling Better, Resting Comfortably Nursing Reports: Other (She has scored 7 on CIWA, got iv Ativan, is awake but not fidgety like yesterday) Objective Vital Signs: Vital Signs - 24 hr 01/07/22 01/08/22 01/08/22 21:15 00:16 05:00 Temperature 36.2 C L 36.2 C L 36.3 C L Heart Rate [ 73 70 68 Brachial] Respiratory 17 16 16 Rate Blood Pressure 96/45 L 130/80 120/71 [Right Brachial artery] O2 Saturation 99 98 97 01/08/22 01/08/22 01/08/22 07:24 11:35 15:47 Temperature 36.2 C L 36.1 C L 36.2 C L Heart Rate [ 70 83 85 Brachial] Respiratory 16 17 17 Rate Blood Pressure 109/66 97/52 L 96/54 L [Right Brachial artery] O2 Saturation 98 97 99 Oxygen O2 Source Room air I&O (Last 24 Hrs): Intake and Output Totals x24h 01/06/22 01/07/22 01/08/22 23:59 23:59 23:59 Intake Total 2240 3499.444 2378.925 Balance 2240 3499.444 2378.925 General: Alert HEENT: Mucous membr. moist/pink Neck: Supple Neuro: Alert, Non Focal (No tremor, less impulsivity today) Cardiovascular: No murmurs Respiratory: No respiratory distress, Breath sounds nml Abdomen: Soft Extremities: No edema Skin: No rashes - Results Results: Laboratory Results WBC 5.4 x10^3/uL (4.8-10.8) 01/08/22 07:05 RBC 3.62 10^6/uL (4.20-5.40) L 01/08/22 07:05 Hgb 11.9 g/dL (12.0-16.0) L 01/08/22 07:05 Hct 35.3 % (37.0-47.0) L 01/08/22 07:05 MCV 97.5 fL (81.0-99.0) 01/08/22 07:05 MCH 32.9 pg (27.0-31.0) H 01/08/22 07:05 MCHC 33.7 g/dL (32.0-36.0) 01/08/22 07:05 RDW 13.2 % (12.0-15.0) 01/08/22 07:05 Plt Count 219 10^3/uL (130-450) 01/08/22 07:05 MPV 9.9 fL (7.9-10.8) 01/08/22 07:05 Neut # (Auto) 1.9 10^3/uL (1.5-6.6) 01/08/22 07:05 Lymph # (Auto) 2.7 10^3/uL (1.5-3.5) 01/08/22 07:05 [place] # (Auto) 0.5 10^3/uL (0.0-1.0) 01/08/22 07:05 Eos # (Auto) 0.2 10^3/uL (0.0-0.7) 01/08/22 07:05 Baso # (Auto) 0.0 10^3/uL (0.0-0.1) 01/08/22 07:05 Absolute Nucleated RBC 0.00 x10^3/uL 01/08/22 07:05 Nucleated RBC % 0.0 /100WBC 01/08/22 07:05 Sodium 133 mmol/L (135-145) L 01/08/22 07:05 Potassium 3.7 mmol/L (3.5-5.0) 01/08/22 07:05 Chloride 101 mmol/L (101-111) 01/08/22 07:05 Carbon Dioxide 25 mmol/L (21-32) 01/08/22 07:05 Anion Gap 7.0 (6-13) 01/08/22 07:05 BUN 14 mg/dL (6-20) 01/08/22 07:05 Creatinine 0.8 mg/dL (0.4-1.0) 01/08/22 07:05 Estimated GFR (MDRD) 69 (>89) L 01/08/22 07:05 Glucose 96 mg/dL (70-100) 01/08/22 07:05 Calcium 8.5 mg/dL (8.5-10.3) 01/08/22 07:05 Magnesium 2.0 mg/dL (1.7-2.8) 01/08/22 07:05 Total Bilirubin 1.0 mg/dL (0.2-1.0) 01/07/22 06:15 Direct Bilirubin 0.2 mg/dL (0.1-0.5) 01/07/22 06:15 AST 16 IU/L (10-42) 01/07/22 06:15 ALT < 10 IU/L (10-60) L 01/07/22 06:15 Alkaline Phosphatase 40 IU/L (42-121) L 01/07/22 06:15 Troponin I High Sens 10.5 ng/L (2.3-14.8) 01/06/22 13:45 B-Natriuretic Peptide 409 pg/mL (5-100) H 01/06/22 13:45 Total Protein 6.4 g/dL (6.7-8.2) L 01/07/22 06:15 Albumin 3.7 g/dL (3.2-5.5) 01/07/22 06:15 Globulin 2.7 g/dL (2.1-4.2) 01/07/22 06:15 Urine Color YELLOW 01/06/22 16:28 Urine Clarity CLEAR (CLEAR) 01/06/22 16:28 Urine pH 7.0 PH (5.0-7.5) 01/06/22 16:28 Ur Specific [place] 1.015 (1.002-1.030) 01/06/22 16:28 Urine Protein NEGATIVE mg/dL (NEGATIVE) 01/06/22 16:28 Urine Glucose (UA) NEGATIVE mg/dL (NEGATIVE) 01/06/22 16:28 Urine Ketones NEGATIVE mg/dL (NEGATIVE) 01/06/22 16:28 Urine Occult Blood NEGATIVE (NEGATIVE) 01/06/22 16:28 Urine Nitrite NEGATIVE (NEGATIVE) 01/06/22 16:28 Urine Bilirubin NEGATIVE (NEGATIVE) 01/06/22 16:28 Urine Urobilinogen 0.2 (NORMAL) E.U./dL (NORMAL) 01/06/22 16:28 Ur Leukocyte Esterase TRACE (NEGATIVE) H 01/06/22 16:28 Urine RBC 0-5 /HPF (0-5) 01/06/22 16:28 Urine WBC 0-3 /HPF (0-5) 01/06/22 16:28 Ur Squamous Epith Cells FEW Squamous (<= Few) 01/06/22 16:28 Urine Bacteria Rare /HPF (None Seen) 01/06/22 16:28 Ur Microscopic Review INDICATED 01/06/22 16:28 Urine Culture Comments INDICATED 01/06/22 16:28 Nasal Adenovirus (PCR) NOT DETECTED 01/06/22 15:10 Nasal B. parapertussis DNA (PCR) NOT DETECTED 01/06/22 15:10 Nasal Coronavir 229E PCR NOT DETECTED 01/06/22 15:10 Nasal Coronavir HKU1 PCR NOT DETECTED 01/06/22 15:10 Nasal Coronavir NL63 PCR NOT DETECTED 01/06/22 15:10 Nasal Coronavir OC43 PCR NOT DETECTED 01/06/22 15:10 Nasal Enterovir/Rhinovir PCR NOT DETECTED 01/06/22 15:10 Nasal Influenza B PCR NOT DETECTED 01/06/22 15:10 Nasal Influenza A PCR NOT DETECTED 01/06/22 15:10 Nasal Parainfluen 1 PCR NOT DETECTED 01/06/22 15:10 Nasal Parainfluen 2 PCR NOT DETECTED 01/06/22 15:10 Nasal Parainfluen 3 PCR NOT DETECTED 01/06/22 15:10 Nasal Parainfluen 4 PCR NOT DETECTED 01/06/22 15:10 Nasal RSV (PCR) NOT DETECTED 01/06/22 15:10 Nasal B.pertussis DNA PCR NOT DETECTED 01/06/22 15:10 Nasal C.pneumoniae (PCR) NOT DETECTED 01/06/22 15:10 Micah Human Metapneumo PCR NOT DETECTED 01/06/22 15:10 Nasal M.pneumoniae (PCR) NOT DETECTED 01/06/22 15:10 Nasal SARS-CoV-2 (PCR) NOT DETECTED 01/06/22 15:10 Last Dose Date Not Reportable 01/06/22 13:45 Last Dose Time Not Reportable 01/06/22 13:45 Digoxin 0.4 ng/mL 01/06/22 13:45
[2022-01-09] MEDS: THIAMINE INJ 500 MG in SODIUM CHLORIDE 0.9% 50 ML IV SCH ×3 (05:09→21:07)
[2022-01-09 05:20] LABS: BASOPHILS % (AUTO) 0.5 %; EOSINOPHILS # (AUTO) 0.1 10^3/uL (0.0-0.7); EOSINOPHILS % (AUTO) 2.1 %; HCT - HEMATOCRIT 34.5 % (37.0-47.0); HGB - HEMOGLOBIN 11.6 g/dL (12.0-16.0); LYMPHOCYTES # (AUTO) 3.6 10^3/uL (1.5-3.5); MEAN CORPUSCULAR HEMOGLOBIN 32.6 pg (27.0-31.0); MEAN CORPUSCULAR HGB CONC 33.6 g/dL (32.0-36.0); MEAN CORPUSCULAR VOLUME 96.9 fL (81.0-99.0); MEAN PLATELET VOLUME 9.7 fL (7.9-10.8); MONOCYTES # (AUTO) 0.5 10^3/uL (0.0-1.0); MONOCYTES % (AUTO) 7.7 %; NEUTROPHILS # (AUTO) 2.3 10^3/uL (1.5-6.6); NEUTROPHILS % (AUTO) 35.5 %; PLT - PLATELET COUNT 220 10^3/uL (130-450); RED BLOOD COUNT 3.56 10^6/uL (4.20-5.40); RED CELL DISTRIBUTION WIDTH 13.4 % (12.0-15.0); WHITE BLOOD COUNT 6.6 x10^3/uL (4.8-10.8)
[2022-01-09] MEDS: SODIUM CHLORIDE FLUSH 0.9% 10 ML SYRINGE IVP SCH ×4 (05:21→23:31)
[2022-01-09 05:32] LABS: CALCIUM 8.2 mg/dL (8.5-10.3); CREATININE 0.8 mg/dL (0.4-1.0)
[2022-01-09] MEDS: NS W/20 MEQ KCL 1,000 ML IV SCH (08:04)
[2022-01-09] MEDS: ASPIRIN EC 81 MG TABLET PO SCH (08:20)
[2022-01-09] MEDS: ENOXAPARIN 40 MG/0.4 ML SYRINGE SUBQ SCH (08:20)
--- NOTE | 2022-01-09 09:00 | PROVIDER PROGRESS NOTE ---
Assessment/Plan - Problem List (1) Atrial flutter with rapid ventricular response Assessment/Plan: She has a Hx of Afib-flutter, per her . She was in aflutter with 4:1 block and a controlled HR at admission. She is now going into non-sustained episodes of Aflutter with 2:1 block, at ventricular rates of 150. Her Dig level was 0.4. Will resume the daily Digoxin dose, for maintaining a controlled heart rate. We are holding the Propafenone as it is not maintaining sinus rhythm. She was on Eliquis at home. There was concern that, given her dementia and orthostasis and therefore falls risk, that Eliquis should not be continued. PT consult has been ordered to assess her falls risk. PT saw her once on 01/07/22, and stated she is a "moderate falls risk". Thus, she has been on 1 aspirin daily for stroke prophylaxis while here. Will continue aspirin, and have PCP consider resuming Eliquis after DCh, if deemed low risk. Continue with telemetry. (2) Alcohol abuse I got Hx from the by phone and the caregiver Ayesha came in and provided history. The says she drinks 1 glass of wine before dinner. The caregiver says she drinks up to 3 glasses of wine every night. We have started high-dose IV thiamine. She is getting Thiamine 500 mg IV t.i.d. for 3 days (finishes on 01/10/22) then will start 100 mg po daily. This may somewhat improve her poor memory. She has been started on a CIWA protocol and has needed Ativan several times. With Ativan she is less impulsive and less agitated. During the phone call with the , it was advised she not be taking in alcohol. The patient's said that she can occasionally "get goofy" and he agreed that she should not be drinking alcohol. Anticipate discharge to home tomorrow, after the iv Thaimine treatment doses are completed at 1600, if no SNF is advised by PT today. (3) Dementia She did not know her medical history and was only oriented to self, not place or time, at admission. She had very poor short-term and long-term memory, by my bedside evaluation. She did not remember an ambulance being called to her house or that she was dizzy at home. She called her at least 4 times on the first day, to pick her up and said she was in "[place] at the [facility]", "at [facility]", and another time at their former house. She told me she still drives and is passenger and "tells her where to turn". At the phone call with the , he confirmed this. Given her diagnosis of dementia, and no prior head imaging done here, we obtained a head CT. It showed an old stroke and atrophy. PT evaluation was ordered and done. She was found to be very impulsive, was getting OOB on her own and trying to walk in the room despite her being connected to telemetry and IV tubing. She was reminded several times to call her nurse before getting out of bed on her own. PT stated she is a "moderate falls risk". Then the history of her alcohol intake was learned and she was started on a CIWA protocol, but no scheduled Librium to prevent over-sedation. Her impulsiveness and agitation improved after getting Ativan prn. I submitted a DMV form prohibiting driving a vehicle any longer, and told the this. Correcting her hyponatremia and treating her with high-dose thiamine may help her dementia somewhat as well. (4) Hx of CVA We obtained a head CT that confirmed an old stroke causing encephalomalacia and no acute findings. (5) Pacemaker Her telemetry shows that she has appropriate ventricular demand pacing (back-up pacing). (6) Orthostatic hypotension Resolved after 3 days of iv fluids She was admitted with orthostasis. No infection was found. The only cause was poor oral hydration throughout the day (confirmed by the caregiver and by the ). A bedside Echo was done that showed normal chamber sizes and normal LVEF. Will stop IV fluids today, and assess if she can maintain hydration orally. Anticipate discharge tomorrow Continue to monitor orthostatic vital sign Follow BMP daily Continue telemetry (7) Dehydration Resolved. She presented with pre-renal azotemia with BUN/creat 24/1.1, which has corrected to 17/0.8. Only poor po intake was found as a cause of the current volume depletion. There has been no fever, no diarrhea, no medications that would make her dehydrated were being used. I spoke to the by phone and the caregiver at bedside. They both confirmed that the patient drinks practically nothing all day except for morning coffee and wine at night. and caregiver were instructed that she needs more hydration while awake. (8) Hyponatremia Resolved. Patient's sodium was 123, with hypovolemic hyponatremia. Her Na improved with iv saline We will stop IV NS today. Following BMP (9) Hypokalemia Resolved. Her Potassium was 3 and replacement was ordered for 2 days now. There was no N/V/D and no diuretics on her home med list to explain this low K and there has been no fever, to explain the low sodium and volume depletion as well. Only poor po intake was found as a cause of the current volume depletion. We will order replacement with potassium Following BMP - Current Meds Current Meds: Current Medications Generic Name Dose Route Start Last Admin Trade Name Freq PRN Reason Stop Dose Admin Aspirin 81 mg 01/08/22 09:00 01/09/22 08:20 Aspirin Ec 81 Mg Tablet PO 81 mg DAILY AYANA Administration Enoxaparin Sodium 40 mg 01/07/22 09:00 01/09/22 08:20 Enoxaparin 40 Mg/0.4 Ml Syringe SUBQ 40 mg DAILY AYANA Administration Potassium Chloride/Sodium Chloride 1,000 mls @ 83.333 mls/hr 01/07/22 17:00 01/09/22 08:04 Normal Saline 0.9% W/20 Meq Kcl IV 83.3 mls/hr .Q12H AYANA Administration Thiamine HCl 500 mg/ Sodium 55 mls @ 100 mls/hr 01/07/22 22:00 01/09/22 06:09 Chloride IV 01/10/22 15:00 Infused TID AYANA Infusion Lorazepam 1 mg 01/07/22 16:57 01/07/22 19:27 Lorazepam 2 Mg/Ml Vial IVP 1 mg Q30M PRN Administration CIWA >8 Protocol Sodium Chloride 10 ml 01/06/22 17:00 01/09/22 08:20 Sodium Chloride Flush 0.9% 10 Ml Syringe IVP 10 ml 0100,0900,1700 AYANA Administration - Lab Result Fish Bone Diagrams: 01/09/22 04:59 01/09/22 04:59 - Additional Planning My Orders: My Active Orders 01/08/22 09:00 Aspirin EC [Ecotrin] 81 mg PO DAILY 01/09/22 09:00 Ascorbic Acid [Vitamin C] 1 tab PO DAILY Calcium Carbonate [Calcium] 1 tab PO DAILY Digoxin [Lanoxin] 0.125 mg PO DAILY Magnesium Oxide [Magnesium] 400 mg PO DAILY Multivit/Folic Acid/Vit K1 [Women's 50 Plus Advanced Mv Tb] 1 tab PO DAILY [place]-3S/Dha/Epa/Fish Oil [Fish Oil 1,200 mg Softgel] 1 cap PO DAILY Tocopheryl [Vitamin E] 1 cap PO DAILY 01/09/22 21:00 Pravastatin [Pravachol] 10 mg PO QPM Subjective - Subjective Patient Reports: Resting Comfortably, No Complaints Nursing Reports: Other (No agitation or impulsivity, follows and remembers directions.) Objective Vital Signs: Vital Signs - 24 hr 01/08/22 01/08/22 01/08/22 11:35 15:47 20:48 Temperature 36.1 C L 36.2 C L 36.1 C L Heart Rate [ 83 85 80 Brachial] Respiratory 17 17 16 Rate Blood Pressure 120/53 L [Left Brachial artery] Blood Pressure 97/52 L 96/54 L [Right Brachial artery] O2 Saturation 97 99 98 01/08/22 01/09/22 01/09/22 23:34 05:11 07:53 Temperature 36.2 C L 36.5 C 36.3 C L Heart Rate [ 77 78 73 Brachial] Respiratory 16 14 16 Rate Blood Pressure [Left Brachial artery] Blood Pressure 98/61 94/61 110/59 L [Right Brachial artery] O2 Saturation 98 98 97 Oxygen O2 Source Room air I&O (Last 24 Hrs): Intake and Output Totals x24h 01/07/22 01/08/22 01/09/22 23:59 23:59 23:59 Intake Total 3499.444 3389.318 1055 Balance 3499.444 3389.318 1055 General: Alert, No acute distress HEENT: Atraumatic, EOMI Neck: Supple Neuro: Alert, Non Focal, Other (poor memory) Cardiovascular: No murmurs, Other (Irreg irreg) Respiratory: No respiratory distress, Breath sounds nml Abdomen: Normal bowel sounds, Soft Extremities: No clubbing, No edema, No tenderness/swelling Skin: No rashes - Results Results: Laboratory Results WBC 6.6 x10^3/uL (4.8-10.8) 01/09/22 04:59 RBC 3.56 10^6/uL (4.20-5.40) L 01/09/22 04:59 Hgb 11.6 g/dL (12.0-16.0) L 01/09/22 04:59 Hct 34.5 % (37.0-47.0) L 01/09/22 04:59 MCV 96.9 fL (81.0-99.0) 01/09/22 04:59 MCH 32.6 pg (27.0-31.0) H 01/09/22 04:59 MCHC 33.6 g/dL (32.0-36.0) 01/09/22 04:59 RDW 13.4 % (12.0-15.0) 01/09/22 04:59 Plt Count 220 10^3/uL (130-450) 01/09/22 04:59 MPV 9.7 fL (7.9-10.8) 01/09/22 04:59 Neut # (Auto) 2.3 10^3/uL (1.5-6.6) 01/09/22 04:59 Lymph # (Auto) 3.6 10^3/uL (1.5-3.5) H 01/09/22 04:59 [place] # (Auto) 0.5 10^3/uL (0.0-1.0) 01/09/22 04:59 Eos # (Auto) 0.1 10^3/uL (0.0-0.7) 01/09/22 04:59 Baso # (Auto) 0.0 10^3/uL (0.0-0.1) 01/09/22 04:59 Absolute Nucleated RBC 0.00 x10^3/uL 01/09/22 04:59 Nucleated RBC % 0.0 /100WBC 01/09/22 04:59 Sodium 135 mmol/L (135-145) 01/09/22 04:59 Potassium 4.0 mmol/L (3.5-5.0) 01/09/22 04:59 Chloride 106 mmol/L (101-111) 01/09/22 04:59 Carbon Dioxide 23 mmol/L (21-32) 01/09/22 04:59 Anion Gap 6.0 (6-13) 01/09/22 04:59 BUN 14 mg/dL (6-20) 01/09/22 04:59 Creatinine 0.8 mg/dL (0.4-1.0) 01/09/22 04:59 Estimated GFR (MDRD) 69 (>89) L 01/09/22 04:59 Glucose 99 mg/dL (70-100) 01/09/22 04:59 Calcium 8.2 mg/dL (8.5-10.3) L 01/09/22 04:59 Magnesium 2.0 mg/dL (1.7-2.8) 01/08/22 07:05 Total Bilirubin 1.0 mg/dL (0.2-1.0) 01/07/22 06:15 Direct Bilirubin 0.2 mg/dL (0.1-0.5) 01/07/22 06:15 AST 16 IU/L (10-42) 01/07/22 06:15 ALT < 10 IU/L (10-60) L 01/07/22 06:15 Alkaline Phosphatase 40 IU/L (42-121) L 01/07/22 06:15 Troponin I High Sens 10.5 ng/L (2.3-14.8) 01/06/22 13:45 B-Natriuretic Peptide 409 pg/mL (5-100) H 01/06/22 13:45 Total Protein 6.4 g/dL (6.7-8.2) L 01/07/22 06:15 Albumin 3.7 g/dL (3.2-5.5) 01/07/22 06:15 Globulin 2.7 g/dL (2.1-4.2) 01/07/22 06:15 Urine Color YELLOW 01/06/22 16:28 Urine Clarity CLEAR (CLEAR) 01/06/22 16:28 Urine pH 7.0 PH (5.0-7.5) 01/06/22 16:28 Ur Specific [place] 1.015 (1.002-1.030) 01/06/22 16:28 Urine Protein NEGATIVE mg/dL (NEGATIVE) 01/06/22 16:28 Urine Glucose (UA) NEGATIVE mg/dL (NEGATIVE) 01/06/22 16:28 Urine Ketones NEGATIVE mg/dL (NEGATIVE) 01/06/22 16:28 Urine Occult Blood NEGATIVE (NEGATIVE) 01/06/22 16:28 Urine Nitrite NEGATIVE (NEGATIVE) 01/06/22 16:28 Urine Bilirubin NEGATIVE (NEGATIVE) 01/06/22 16:28 Urine Urobilinogen 0.2 (NORMAL) E.U./dL (NORMAL) 01/06/22 16:28 Ur Leukocyte Esterase TRACE (NEGATIVE) H 01/06/22 16:28 Urine RBC 0-5 /HPF (0-5) 01/06/22 16:28 Urine WBC 0-3 /HPF (0-5) 01/06/22 16:28 Ur Squamous Epith Cells FEW Squamous (<= Few) 01/06/22 16:28 Urine Bacteria Rare /HPF (None Seen) 01/06/22 16:28 Ur Microscopic Review INDICATED 01/06/22 16:28 Urine Culture Comments INDICATED 01/06/22 16:28 Nasal Adenovirus (PCR) NOT DETECTED 01/06/22 15:10 Nasal B. parapertussis DNA (PCR) NOT DETECTED 01/06/22 15:10 Nasal Coronavir 229E PCR NOT DETECTED 01/06/22 15:10 Nasal Coronavir HKU1 PCR NOT DETECTED 01/06/22 15:10 Nasal Coronavir NL63 PCR NOT DETECTED 01/06/22 15:10 Nasal Coronavir OC43 PCR NOT DETECTED 01/06/22 15:10 Nasal Enterovir/Rhinovir PCR NOT DETECTED 01/06/22 15:10 Nasal Influenza B PCR NOT DETECTED 01/06/22 15:10 Nasal Influenza A PCR NOT DETECTED 01/06/22 15:10 Nasal Parainfluen 1 PCR NOT DETECTED 01/06/22 15:10 Nasal Parainfluen 2 PCR NOT DETECTED 01/06/22 15:10 Nasal Parainfluen 3 PCR NOT DETECTED 01/06/22 15:10 Nasal Parainfluen 4 PCR NOT DETECTED 01/06/22 15:10 Nasal RSV (PCR) NOT DETECTED 01/06/22 15:10 Nasal B.pertussis DNA PCR NOT DETECTED 01/06/22 15:10 Nasal C.pneumoniae (PCR) NOT DETECTED 01/06/22 15:10 Micah Human Metapneumo PCR NOT DETECTED 01/06/22 15:10 Nasal M.pneumoniae (PCR) NOT DETECTED 01/06/22 15:10 Nasal SARS-CoV-2 (PCR) NOT DETECTED 01/06/22 15:10 Last Dose Date Not Reportable 01/06/22 13:45 Last Dose Time Not Reportable 01/06/22 13:45 Digoxin 0.4 ng/mL 01/06/22 13:45
[2022-01-09] MEDS: MULTIVITAMIN TABLET PO SCH (09:18)
[2022-01-09] MEDS: ASCORBIC ACID 500 MG TABLET PO SCH (09:18)
[2022-01-09] MEDS: DIGOXIN 125 MCG TABLET PO SCH (09:18)
[2022-01-09] MEDS: MAGNESIUM OXIDE 400 MG TABLET PO SCH (09:18)
[2022-01-09] MEDS: OMEGA-3 ACID ETHYL ESTERS 1 GM CAPSULE PO SCH (09:22)
[2022-01-09] MEDS: CALCIUM CARBONATE CHEW 500 MG TABLET PO SCH (09:22)
[2022-01-09] MEDS ORDERED: DIGOXIN 500 MCG/2 ML AMP IVP STA (09:25)
[2022-01-09] MEDS ORDERED: PRAVASTATIN 10 MG TABLET PO SCH (21:00)
[2022-01-10] MEDS ORDERED: THIAMINE 100 MG/1 ML 2 ML MDV ONE (05:38)
[2022-01-10] MEDS: THIAMINE INJ 500 MG in SODIUM CHLORIDE 0.9% 50 ML IV SCH ×3 (05:50→13:45)
[2022-01-10] MEDS: MAGNESIUM OXIDE 400 MG TABLET PO SCH (08:04)
[2022-01-10] MEDS: MULTIVITAMIN TABLET PO SCH (08:04)
[2022-01-10] MEDS: ASCORBIC ACID 500 MG TABLET PO SCH (08:50)
[2022-01-10] MEDS: SODIUM CHLORIDE FLUSH 0.9% 10 ML SYRINGE IVP SCH (08:51)
[2022-01-10] MEDS: OMEGA-3 ACID ETHYL ESTERS 1 GM CAPSULE PO SCH (08:51)
[2022-01-10] MEDS: DIGOXIN 125 MCG TABLET PO SCH (08:51)
[2022-01-10] MEDS: ASPIRIN EC 81 MG TABLET PO SCH (08:51)
[2022-01-10] MEDS: CALCIUM CARBONATE CHEW 500 MG TABLET PO SCH (08:51)
[2022-01-10] MEDS: ENOXAPARIN 40 MG/0.4 ML SYRINGE SUBQ SCH (08:55)
[2022-01-10] MEDS ORDERED: TOCOPHERYL 400 UNIT CAPSULE PO SCH (09:00)
--- NOTE | 2022-01-10 11:09 | Discharge Plan ---
Discharge Plan Problem Reviewed?: Yes Disposition: Home Health Service Condition: Stable Diet: Regular Activity Restrictions: Activity as Tolerated (no alcohol at all, no drinking in the house) Shower Restrictions: No Driving Restrictions: Yes (no driving ) Health Concerns: This is written for the patient's and family since the patient has dementia and will not be able to understand. She has chronic atrial fibrillation and has a history of a stroke and presented to the emergency room complaining of dizziness. After being evaluated in the emergency room she was orthostatic which meant that she dropped her blood pressure when standing, had a sodium of 123, potassium of 3 and was dehydrated with a creatinine of 1.1. During her stay the patient was hydrated, electrolytes were supplemented, and we have elicited a history of possible alcohol abuse above to 3 glasses of wine a night. Plan of Treatment: Blood pressure is now stable. She has received thiamine 500 mg IV push 3 times a day and completed on the day of discharge. She is needing help with some strengthening and self-care such as dressing and feeding. As such we are recommendin. Home health physical therapy, Occupational Therapy, and social work 2. She is to continue thiamine 100 mg once a day 3. She is to stop Eliquis because she is a fall risk. At this time we feel the risk of subdural or internal bleeding due to fall is higher than the risk of stroke from atrial fibrillation. However, if her repair order clerk wishes to resume the Eliquis that should be addressed at her next visit. 4. During her stay she did have an uncontrolled rate in the spite of being on propafenone. At discharge we are resuming the propafenone and her repair order clerk can decide if that drug is to continue as well. She is currently on digoxin with a rate of 69. Care Goals: To remain safely at home. Assessment: Dementia, case discussed with social work, and . It is been made clear to the that his can no longer drive. Up until this point she was driving and he was instructing her where to "turn the car". Follow-Up Care: Home Health - RN, Home Health - PT, Home Health - OT No Smoking: If you smoke, Please STOP! Call for help. Follow-up with: Ramos Bello MD [Primary Care Provider] -
[2022-01-10 11:31] VITALS: BP 102/61
--- NOTE | 2022-01-10 11:31 | Discharge Plan ---
Discharge Plan Problem Reviewed?: Yes Disposition: 06 Home Health Service Condition: Stable Activity Restrictions: Activity as Tolerated (no alcohol at all, no drinking in the house) Shower Restrictions: No Driving Restrictions: Yes (no driving ) Health Concerns: This is written for the patient's and family since the patient has dementia and will not be able to understand. She has chronic atrial fibrillation and has a history of a stroke and presented to the emergency room complaining of dizziness. After being evaluated in the emergency room she was orthostatic which meant that she dropped her blood pressure when standing, had a sodium of 123, potassium of 3 and was dehydrated with a creatinine of 1.1. During her stay the patient was hydrated, electrolytes were supplemented, and we have elicited a history of possible alcohol abuse above to 3 glasses of wine a night. Plan of Treatment: Blood pressure is now stable. She has received thiamine 500 mg IV push 3 times a day and completed on the day of discharge. She is needing help with some strengthening and self-care such as dressing and feeding. As such we are recommendin. Home health physical therapy, Occupational Therapy, and social work 2. She is to continue thiamine 100 mg once a day 3. She is to stop Eliquis because she is a fall risk. At this time we feel the risk of subdural or internal bleeding due to fall is higher than the risk of stroke from atrial fibrillation. However, if her drilling machine runner wishes to resume the Eliquis that should be addressed at her next visit. 4. During her stay she did have an uncontrolled rate in the spite of being on propafenone. At discharge we are resuming the propafenone and her drilling machine runner can decide if that drug is to continue as well. She is currently on digoxin with a rate of 69. Care Goals: To remain safely at home. Assessment: Dementia, case discussed with social work, and . It is been made clear to the that his can no longer drive. Up until this point she was driving and he was instructing her where to "turn the car". No Smoking: If you smoke, Please STOP! Call for help. Follow-up with: Ramos Bello MD [Primary Care Provider] -
--- NOTE | 2022-01-10 11:32 | DISCHARGE SUMMARY ---
Discharge Summary Admit Date: 01/06/22 Discharge Date: 01/10/22 Discharging Provider: Helena Quiñones MD Primary Care Provider: Ramos Bello Code Status: Do Not Attempt Resuscitation Condition at Discharge: Stable Discharge Disposition: Home Health Service - DIAGNOSES Discharge Diagnoses with Status of Each Condition: 1. Orthostatic hypotension 2. Dehydration 3. Hyponatremia 4. Hypokalemia 5. Alcohol abuse 6. Atrial flutter with rapid ventricular response 7. Dementia without behavioral disturbance 8. History of stroke 9. Pacemaker status - HPI History of Present Illness: This is a 81-yrs old female with a significant medical history of dementia and CVA with wheelchair bound, a fib who present ER complain of Dizziness. pt report when she stood up in this morning, she immediately felt lightheaded. she has to sit back down on the bed, then her symptoms was resolved. she denies fall or injury or loss of consciousness. her dizziness has only lasted for a few seconds. She denies chest pain, fever, chill. She report this dizziness thing happened before and state " it is my problem I did not drink enough." Routine laboratory test show sodium 123, potassium 3, BUN 24, creatinine 1.1, troponin 10.5, BNP 409. In the ER, patient is afebrile, her blood pressure was 92/56. Given patient's above medical conditions, medical team was consulted for admission. 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 No acute hemorrhage seen. Urine culture had greater than 100,000 of colony-forming units with polymicrobial growth. Probable contamination. - HOSPITAL COURSE Hospital Course: Confusion and mentation slowly improved as the patient received hydration and her electrolytes were corrected. History was then elicited from the son Neno who states that he is DPOA. His number is [phone]. However he was not able to confirm with paperwork that he truly is the DPOA. And as such, Social work informed him that we will be glad to receive information but could not s hare information with him. He states that there is problems within the household. The caregiver, Ayesha, may be involved. Although the states that the is only drinking 1 glass of wine a day, the son states that mom may be drinking up to 3 glasses of wine a day and she drinks because the caregiver fills her glass. As such we will put the patient on thiamine IV. With hydration and thiamine the patient improved to baseline. She also received Ativan. She was initially quite agitated but became much calmer, and at baseline, with the use of Ativan. She was seen by physical therapy and Occupational Therapy who feel that she would be a candidate for home health therapy. We have also submitted Adult Protective Services referral through social work. At this time the patient is also still driving in spite of her dementia. The is a passenger and will tell his where to turn. We have asked him to stop doing that and his can no longer drive and also turned in a form to the DMV. Social work did discuss with us whether or not this was a safe discharge. Soci al work felt that it was a safe discharge and that the patient is clean, well fed, no skin breakdown, and in her dementia may not be aware of the alleged inappropriate behavior between her and caregiver. Her other medical problems of atrial fibrillation were addressed. She did have episodes of uncontrolled rhythm that required adjustment in digoxin. Propafenone appeared not to help. Propafenone was not given to her during her stay. She does have a pacemaker that is functioning. At discharge propafenone was resumed with the idea that cardiology can decide whether to keep her on it or stop it. The other problem with atrial fibrillation was Eliquis. Physical therapy feels the patient is at risk for falls. We have held her Eliquis due to her risk for falls that could cause subdural or internal bleeding. Again, we would ask cardiology to resume it at their discretion if they felt it was needed. She is on an aspirin a day at this time. This was discussed with the by Dr. Fletcher who is a fish grader. At discharge the patient's temperature is 36.3. Heart rate 81. Supine blood pressure 118/70 with a pulse of 69. Sitting blood pressure 122/76 with a pulse of 70. Standing blood pressure is 126/99 with a heart rate of 88. Respirations are 18 and she is 100% on room air. She is 5 foot 8 inches tall and weighs 63.4 kg. She is an alert female who knows that she is in the hospital but does not know the date. She cannot remember what brought her here. Neck is supple. Lungs have diminished breath sounds at the bases. There is no increased respiratory effort. She is a regular rate and rhythm. Abdomen is soft, nontender, normal bowel sounds. Last bowel movement was this morning. Extremities are without edema. She is able to sit on the side of the bed, ambulate to the bathroom. Greater than 30 minutes was spent coordinating discharge - ALLERGIES Allergies/Adverse Reactions: Allergies Allergy/AdvReac Type Severity Reaction Status Date / Time No Known Drug Allergies Allergy Verified 06/14/21 13:18 - MEDICATIONS Home Medications: Ambulatory Orders Medication Instructions Recorded Confirmed Digoxin [Lanoxin] 0.125 mg PO DAILY 01/07/22 01/08/22 Pravastatin [Pravachol] 10 mg PO QPM 01/07/22 01/07/22 Propafenone HCl [Propafenone HCl 325 mg PO BID 01/07/22 01/07/22 ER] Ascorbic Acid [Vitamin C] 1 tab PO DAILY 01/08/22 01/08/22 Calcium Carbonate [Calcium] 1 tab PO DAILY 01/08/22 01/08/22 Magnesium Oxide [Magnesium] 400 mg PO DAILY 01/08/22 01/08/22 Multivit/Folic Acid/Vit K1 1 tab PO DAILY 01/08/22 01/08/22 [Women's 50 Plus Advanced Mv Tb] [place]-3S/Dha/Epa/Fish Oil [Fish 1 cap PO DAILY 01/08/22 01/08/22 Oil 1,200 mg Softgel] Psyllium Husk [Psyllium Fiber] 1 cap PO DAILY 01/08/22 01/08/22 Vitamin E (Dl,Tocopheryl Acet) 1 cap PO DAILY 01/08/22 01/08/22 [Vitamin E] Aspirin EC [Ecotrin] 81 mg PO DAILY tablet 01/10/22 - LABS Result Diagrams: 01/09/22 04:59 01/09/22 04:59
== END 2022-01-10 14:52 | disposition home health service (06) | DRG 312 ==
LOC: ED 13:15 → MS2 14:51 → OBSVTOIN 01-07 10:31
PROVIDERS: ADMIT Nurse Practitioner Gerontology; ATTEND Specialist
DX: R42 Dizziness and giddiness (principal); I95.1 Orthostatic hypotension; E87.1 Hypo-osmolality and hyponatremia; I48.20 Chronic atrial fibrillation, unspecified; Z20.822 Contact with and (suspected) exposure to COVID-19; I48.92 Unspecified atrial flutter; E86.0 Dehydration; E87.6 Hypokalemia; I48.91 Unspecified atrial fibrillation; F10.10 Alcohol abuse, uncomplicated; F03.90 Unspecified dementia, unspecified severity, without behavioral disturbance, psychotic disturbance, mood disturbance, and anxiety; Z66 Do not resuscitate; Z95.0 Presence of cardiac pacemaker; Z79.01 Long term (current) use of anticoagulants; Z91.81 History of falling; Z87.891 Personal history of nicotine dependence; Z86.73 Personal history of transient ischemic attack (TIA), and cerebral infarction without residual deficits; I25.2 Old myocardial infarction; Z99.3 Dependence on wheelchair
CPT/HCPCS: 36415; 70450; 80048; 80076; 80162; 81001; 83735; 83880; 84295; 84484; 85025; 87086; 87633; 93005; 97116; 97162; 97165; 99283; 99285; A9270; G0378; J1650; J2060; J3411; J7040; 81003

== ENCOUNTER 2023-09-06 17:19 | Outpatient (CLI) | payer MEDICARE, OTHER | END 2023-09-06 23:59 | disposition short-term general hospital (02) | LOC: EMS 17:19 | DX: S49.92XA Unspecified injury of left shoulder and upper arm, initial encounter (principal); W00.0XXA Fall on same level due to ice and snow, initial encounter; Y92.009 Unspecified place in unspecified non-institutional (private) residence as the place of occurrence of the external cause | CPT/HCPCS: A0425; A0429 ==